=== PATIENT | male | born 1975 | race African-American/Black ===

== ENCOUNTER 2020-10-01 19:43 | Emergency (ER) | payer OTHER, SELFPAY ==
[2020-10-01 20:00] VITALS: BP 150/87; PULSE 72; RESP 19; TEMP 37.3; O2SAT 98; BMI 27.4
[2020-10-01 21:31] VITALS: BP 145/67; PULSE 78; RESP 18; TEMP 37.1; O2SAT 97; BMI 51.9
[2020-10-01] MEDS: 0.9 % Sodium Chloride 1,000 ML 999 ML IVCONT (22:28)
[2020-10-01 22:34] LABS: Basophils Percent Auto 0.5 % (0-2); Eosinophils Absolute Auto 0.3 X10*3/uL (0.0-0.4); Eosinophils Percent Auto 3.3 % (0-4); Hemoglobin 12.9 g/dl (14.0-18.0); Imm Gran Abs Auto 0.01 X10*3/uL (0.00-0.03); Imm Gran Pct Auto 0.1 % (0.0-0.4); Lymphocytes Absolute Auto 2.5 X10*3/uL (1.2-4.9); Lymphocytes Percent Auto 31.4 % (20-40); Mean Corpuscular HGB Conc 33.1 g/dl (31.0-36.0); Mean Corpuscular Hemoglobin 31.9 pg (27.0-33.0); Mean Corpuscular Volume 96.5 fL (80-98); Mean Platelet Volume 11.4 fL (9.4-12.4); Monocytes Absolute Auto 0.6 X10*3/uL (0.1-1.2); Monocytes Percent Auto 7.7 % (2-11); Neutrophils Absolute Auto 4.5 X10*3/uL (2.0-8.3); Platelet Count 192 X10*3/uL (160-400); Red Blood Count 4.04 X10*6/uL (4.60-5.80); Red Cell Distribution Width 13.4 % (11.0-16.0); WBC ABN SCTR 1
[2020-10-01 22:35] LABS: MANUAL DIFF FLAG NO
[2020-10-01 22:40] LABS: Prothrombin Time 12.1 SEC (10.8-13.0)
[2020-10-01 22:42] LABS: Partial Thromboplastin Time 35.3 SEC (24.1-38.0); WBC ABN SCTR FOR CBC 1
[2020-10-01 23:08] VITALS: BP 166/103; PULSE 61; RESP 16; TEMP 36.5; O2SAT 99
[2020-10-01 23:21] LABS: Glucose Urine UA NEG (NEG); Leukocyte Esterase Urine NEG (NEG); Nitrite Urine NEG (NEG); Urine Blood TRACE (NEG); Urine Ketones NEG (NEG); Urine Protein NEG (NEG-TRACE)
[2020-10-01 23:22] LABS: Appearance Urine CLEAR; Color Urine YELLOW
[2020-10-01 23:29] LABS: RBC Urine 0-2 /HPF (0); WBC Urine 0-2 /HPF (0-4)
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
[2020-10-01 23:43] LABS: Alanine Aminotransferase 12 U/L (0-40); Alkaline Phosphatase 65 U/L (39-117); Anion Gap 11 (12-20); Aspartate Amino Transferase 29 U/L (5-37); Bilirubin Total 0.4 mg/dL (0.0-1.0); Blood Urea Nitrogen 9 mg/dL (9-16); Calcium 8.6 mg/dL (8.4-10.2); Carbon Dioxide 26 mmol/L (22-29); Chloride 106 mmol/L (96-108); Creatinine Clr Calc Pharmacy 117.3; Estimated Glomerular Filt Rate > 60; Glucose Random 76 mg/dL (60-115); Potassium 3.8 mmol/l (3.3-5.1); Sodium 139 mmol/L (135-145)
[2020-10-02] VITALS: BP 143/99; PULSE 64; RESP 16; TEMP 36.6; O2SAT 100
--- NOTE | 2020-10-02 00:21 | CT_ITS ---
EXAMINATION: CT ABDOMEN AND PELVIS WITHOUT CONTRAST CLINICAL INFORMATION: Hematuria. COMPARISON: None. TECHNIQUE: Contiguous axial thin section helical images of the abdomen and pelvis were performed without oral or IV contrast. The data set was reformatted in the coronal and sagittal planes and reviewed on an independent workstation. DLP: 466 mGy-cm. FINDINGS: The visualized lung bases are clear. The visualized portions of the heart are unremarkable. The liver is of normal size and attenuation without focal lesions nor intrahepatic biliary ductal dilation. A normal gallbladder is identified. There is no wall thickening or discernible pericholecystic fluid. The spleen, pancreas, adrenal glands are unremarkable. Both kidneys are of normal size and attenuation without hydronephrosis or nephrolithiasis. There is no abdominal free fluid. There is neither mesenteric nor retroperitoneal lymphadenopathy. Normal unopacified loops of small and large bowel are identified. There is no pelvic free fluid. The urinary bladder is unremarkable. There is neither pelvic nor inguinal lymphadenopathy. Bone windows: Neither sclerotic nor lytic bone lesions are identified. CT/CT abdomen pelvis wo con IMPRESSION: No evidence for acute abdominal or pelvic inflammatory or infectious processes. Neither hydronephrosis nor nephrolithiasis. Please note that contrast was not administered for this exam. As such, evaluation for potential renal or bladder masses is extremely limited. Automated exposure control (Care Dose) Adjustment of the mA and/or kv according to patient size (this includes techniques or standardized protocols for targeted exams where dose is matched to indication / reason for exam; i.e. extremities or head).
== END 2020-10-02 01:59 | disposition home or self-care (01) ==
PROVIDERS: Physician Assistant; Emergency Provider Emergency Medicine
DX: R31.9 Hematuria, unspecified (principal); R10.9 Unspecified abdominal pain; Z79.899 Other long term (current) drug therapy
CPT/HCPCS: 36415; 74176; 80053; 81001; 85025; 85610; 85730; 96360; 99284

== ENCOUNTER 2023-07-17 21:08 | Emergency (ER) | payer OTHER, SELFPAY ==
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
[2023-07-17 21:19] VITALS: BP 202/119; PULSE 81; RESP 18; TEMP 36.9; O2SAT 96; BMI 25.0
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
--- OUTSIDE RECORDS SUMMARY | 2023-07-17 22:10 | XMS_ITS | Continuity of Care Document ---
Author Name Unknown Organization [facility] Address [address] [place] [address]- Care Team Providers Care Pharmacy Sales Assistant Name Role Phone Marvel Chavez DO Primary Care Physician [phone] Encounter [facility] Date(s): 05/15/22 - 06/14/22 [facility] [address] [place] [address]- Attending Physician: Blanca Ware Admitting Physician: AdmtrBlanca Referring Physician: Admtr, Ar8 Allergies, Adverse Reactions, Alerts No Known Allergies Immunizations Given and Recorded Vaccine Date Status Refusal Reason SARS-CoV-2 (COVID-19) mRNA BNT-162b2 vac 09/19/21 Given SARS-CoV-2 (COVID-19) mRNA BNT-162b2 vac 08/22/21 Given tetanus/diphtheria/pertussis, acel(Tdap) 08/22/21 Given pneumococcal 23-valent vaccine 08/24/15 Given influenza virus vaccine, inactivated 08/24/15 Give n Medications Ibuprofen Maintenance, 09/07/15 11:07:50 Start Date: 09/07/15 Status: Ordered lisinopril 10 mg oral tablet 10 mg, 1, tablet, By Mouth, Daily, # 30 tablet, Refills 5, Tot. Refills 5, Maintenance, 08/23/21 8:57:00 EDT, Route to Pharmacy Electronically, [facility] #[id number], Partial fill upon patient request if the prescription is for a schedule II opi... Start Date: 08/23/21 Status: Ordered NuLYTELY with Flavor Packs oral powder for reconstitution 240 mL, By Mouth, Every 10 minutes, May substitute any PEG 3350 solution available, # 1 each, 0 Refills, Maintenance, 12/18/22 17:00:00 EST, REC Powder, [facility] #[id number], test date 12/19/22, 240 mL By Mouth Every 10 minutes,Instr:March subst... Start Date: 12/18/22 Status: Ordered Social History Social History Type Response Smoking Status Never (less than 100 in lifetime) entered on: 08/22/21 Sex
--- OUTSIDE RECORDS SUMMARY | 2023-07-17 22:10 | XMS_ITS | Continuity of Care Document ---
Author Name Unknown Organization [facility] Address [address] [place] [address]- Care Team Providers Care Land Department Head Name Role Phone Not on Staff, PCP Primary Care Physician Unavail able Encounter [facility] Date(s): 04/11/20 - 06/22/20 [facility] [address] [place] [address]- [facility] Attending Physician: Anusha Saldana MD Allergies, Adverse Reactions, Alerts No Known Medication Allergies Substance Reaction Severity Status NKA Active Immunizations Given and Recorded Vaccine Date Status Refusal Reason pneumococcal 23-valent vaccine 08/24/15 Given influenza virus vaccine, inactivated 08/24/15 Give n Medications docusate sodium 100 mg oral tablet 1 tablet = 100 mg, By Mouth, 2 times a day, PRN for constipation, # 28 tablet, 0 Refills, Maintenance, 08/24/15 14:06:47, Tablet Start Date: 08/24/15 Status: Ordered Ibuprofen Maintenance, 09/07/15 11:07:50 Start Date: 09/07/15 Status: Ordered Naprosyn 500 mg oral tablet 1 tablet = 500 mg, By Mouth, 2 times a day, with food, # 30 tablet, 0 Refills, Maintenance, 06/20/15 21:29:22, Tablet Start Date: 06/20/15 Status: Ordered Social History Social History Type Response Smoking Status Never smoker entered on: 09/07/15 Sex
--- OUTSIDE RECORDS SUMMARY | 2023-07-17 22:10 | XMS_ITS | Continuity of Care Document ---
Author Name Unknown Organization [facility] Adult [facility] Address [address] [place] [address]- Care Team Providers Care Box Worker Name Role Phone Dasha Boateng MD Primary Care Physician [phone] Encounter [facility] [place] Date(s): 09/02/21 - 11/14/21 [facility] [address] [place] [address]- Attending Physician: Darvin Alexis MD Admitting Physician: Darvin Alexis MD Allergies, Adverse Reactions, Alerts No Known [...] 08/23/21 8:57:00 EDT, Route to Pharmacy Electronically, [facility] #[id number], Partial fill upon patient request if the prescription is for a schedule II opi... Start Date: 08/23/21 Status: Ordered Social History Social History Type Response Smoking Status Never (less than 100 in lifetime) entered on: 08/22/21 Sex
--- OUTSIDE RECORDS SUMMARY | 2023-07-17 22:10 | XMS_ITS | Continuity of Care Document ---
Author Name Unknown Organization [facility] Adult [facility] Address [address] [place] [address]- Care Team Providers Care Sample Maker Hand Name Role Phone Dasha Boateng MD Primary Care Physician [phone] Encounter [facility] [place] Date(s): 12/07/21 - 02/13/22 [facility] [address] [place] [address]- Attending Physician: Darvin Alexis MD Admitting Physician: Darvin Alexis MD Allergies, Adverse Reactions, Alerts No Known Allergies [...] 08/23/21 8:57:00 EDT, Route to Pharmacy Electronically, [facility] #[id number], Partial fill upon patient request if the prescription is for a schedule II opi... Start Date: 08/23/21 Status: Ordered Social History Social History Type Response Smoking Status Never (less than 100 in lifetime) entered on: 08/22/21 Sex
--- OUTSIDE RECORDS SUMMARY | 2023-07-17 22:10 | XMS_ITS | Continuity of Care Document ---
Author Name Unknown Organization [facility] Address [address] [place] [address]- Care Team Providers Care Bin Operator Name Role Phone Dasha Boateng MD Primary Care Physician Encounter [facility] [place] Date(s): 10/15/21 - 01/02/22 [facility] [address] [place] [address]- Attending Physician: Darvin Alexis MD Admitting Physician: [...] 08/23/21 8:57:00 EDT, Route to Pharmacy Electronically, [facility] #[id number], Partial fill upon patient request if the prescription is for a schedule II opi... Start Date: 08/23/21 Status: Ordered Social History Social History Type Response Smoking Status Never (less than 100 in lifetime) entered on: 08/22/21 Sex
--- OUTSIDE RECORDS SUMMARY | 2023-07-17 22:10 | XMS_ITS | Continuity of Care Document ---
Author Name Unknown Organization [facility] Adult [facility] Address [address] [place] [address]- Care Team Providers Care Special Agent Name Role Phone Marvel Chavez DO Primary Care Physician [phone] Encounter [facility] [place] ACCT R [id number] Date(s): 08/12/22 - 10/04/22 [facility] [address] [place] [address]- Attending Physician: Darvin Alexis MD Admitting Physician: Darvin Alexis MD Allergies, Adverse Reactions, Alerts No Known Allergies Immunizations Given and Recorded Vaccine Date Status Refusal Reason SARS-CoV-2 (COVID-19) mRNA BNT-162b2 vac 09/19/21 Given SARS-CoV-2 (COVID-19) mRNA BNT-162b2 vac 08/22/21 Given tetanus/diphtheria/pertussis, acel(Tdap) 08/22/21 Given pneumococcal 23-valent vaccine 08/24/15 Given influenza virus vaccine, inactivated 08/24/15 Give n Medications amLODIPine 5 mg oral tablet 5 mg, 1, tablet, By Mouth, Daily, # 30 tablet, Refills 1, Tot. Refills 1, Maintenance, 08/12/22 10:27:00 EDT, Route to Pharmacy Electronically, [facility] #[id number], Partial fill upon patient request if the prescription is for a schedule II opi... Start Date: 08/12/22 Status: Ordered Ibuprofen Maintenance, 09/07/15 11:07:50 Start Date: 09/07/15 Status: Ordered lisinopril 40 mg oral tablet 1 tablet = 40 mg, By Mouth, Daily, # 30 tablet, 2 Refills, Maintenance, 08/12/22 10:27:00 EDT, Tablet, [facility] #[id number], Partial fill upon patient request if the prescription is for a schedule II opioid drug., 168, cm, 08/12/22 10:20:00 EDT... Start Date: 08/12/22 Status: Ordered NuLYTELY with Flavor Packs oral powder for reconstitution 240 mL, By Mouth, Every 10 minutes, May substitute any PEG 3350 solution available, # 1 each, 0 Refills, Maintenance, 12/18/22 17:00:00 EST, REC Powder, [facility] #[id number], test date 12/19/22, 240 mL By Mouth Every 10 minutes,Instr:May subst... Start Date: 12/18/22 Status: Ordered Social History Social History Type Response Smoking Status Never (less than 100 in lifetime) entered on: 08/22/21 Sex Patient Care team information Care Team Personnel Name: Marvel Chavez DO Position: S Resident Member Role: PCP Address: Address: [address] [place] [address]- Care Team Related Persons Name: BRISEIDA SALINAS Address: home [address] [place] [address] Name: JANES DICKERSON Address: home [address] [place] [address]
--- OUTSIDE RECORDS SUMMARY | 2023-07-17 22:10 | XMS_ITS | Continuity of Care Document ---
Author Name Unknown Organization [facility] Adult [facility] Address [address] [place] [address]- Care Team Providers Care Sweater Designer Name Role Phone Kilo FLORES, Dasha Primary Care Physician Encounter [facility] [place] Date(s): 04/11/22 - 05/11/22 [facility] [address] [place] [address]- Allergies, Adverse Reactions, Alerts No Known Allergies [...] 08/23/21 8:57:00 EDT, Route to Pharmacy Electronically, [email or web address] #[id number], Partial fill upon patient request if the prescription is for a schedule II opi... Start Date: 08/23/21 Status: Ordered Social History Social History Type Response Smoking Status Never (less than 100 in lifetime) entered on: 08/22/21 Sex
--- OUTSIDE RECORDS SUMMARY | 2023-07-17 22:10 | XMS_ITS | Continuity of Care Document ---
Author Name Unknown Organization [facility] Adult [facility] Address [address] [place] [address]- Care Team Providers Care Stock Parts Fabricator Name Role Phone Marvel Chavez DO Primary Care Physician [phone] [place] [facility] [place] 10/22/22 - 11/21/22 [facility] [address] [place] [address] Allergies, Adverse Reactions, Alerts No Known Allergies Immunizations Given and Recorded Vaccine Date Status Refusal Reason SARS-CoV-2 (COVID-19) mRNA BNT-162b2 vac 09/19/21 Given SARS-CoV-2 (COVID-19) mRNA BNT-162b2 vac 08/22/21 Given tetanus/diphtheria/pertussis, acel(Tdap) 08/22/21 Given pneumococcal 23-valent vaccine 08/24/15 Given influenza virus vaccine, inactivated 08/24/15 Give n Medications amLODIPine 5 mg oral tablet 1 tablet = 5 mg, By Mouth, Daily, # 90 tablet, 0 Refills, Maintenance, 10/22/22 18:12:00 EST, [facility] #[id number], Partial fill upon patient request if the prescription is for a schedule II opioid drug., 168, cm, 08/12/22 10:20:00 EDT,... Start Date: 10/22/22 Status: Ordered Ibuprofen Maintenance, 09/07/15 11:07:50 Start Date: 09/07/15 Status: Ordered lisinopril 40 mg oral tablet 1 tablet = 40 mg, By Mouth, Daily, # 30 tablet, 2 Refills, Maintenance, 11/04/22 18:51:00 EST, Tablet, [facility] #[id number], Partial fill upon patient request if the prescription is for a schedule II opioid drug., 168, cm, 11/04/22 18:50:00 EST... Start Date: 11/04/22 Status: Ordered NuLYTELY with Flavor Packs oral powder for reconstitution 240 mL, By Mouth, Every 10 minutes, May substitute any PEG 3350 solution available, # 1 each, 0 Refills, Maintenance, 12/18/22 17:00:00 EST, REC Powder, [facility] #[id number], test date 12/19/22, 240 mL By Mouth Every 10 minutes,Instr:May subst... Start Date: 12/18/22 Status: Ordered Problem List Condition Confirmation Course Effective Dates Status Health [facility] Informant Hypertension Confirmed Active Social History Social History Type Response Smoking Status Never (less than 100 in lifetime) entered on: 08/22/21 Sex Patient Care team information Care Team Personnel Name: Marvel Chavez DO Position: [facility] Resident Member Role: PCP Address: Address: [address] [place] [address]- Care Team Related Persons Name: BRISEIDA SALINAS Address: home [address] [place] [address] Name: JANES DICKERSON Address: home [address] [place] [address]
--- OUTSIDE RECORDS SUMMARY | 2023-07-17 22:10 | XMS_ITS | Continuity of Care Document ---
Author Name Unknown Organization [facility] Adult [facility] Address [address] [place] [address]- Care Team Providers Care Soldering Technician Name Role Phone Not on Staff, PCP Primary Care Physician Unavail able Encounter [facility] Date(s): 07/17/20 - 08/16/20 [facility] [address] [place] [address]- [facility] Allergies, Adverse Reactions, Alerts No Known Medication [...]
--- OUTSIDE RECORDS SUMMARY | 2023-07-17 22:10 | XMS_ITS | Continuity of Care Document ---
Author Name Unknown Organization [facility] Address [address] [place] [address]- Care Team Providers Care Square Dance Caller Name Role Phone Not on Staff, PCP Primary Care Physician Unavail able Encounter [facility] [place] Date(s): 05/22/20 - 06/22/20 [facility] [address] [place] [address]- [facility] Attending Physician: Anusha Saldana MD Allergies, Adverse [...]
--- OUTSIDE RECORDS SUMMARY | 2023-07-17 22:10 | XMS_ITS | Continuity of Care Document ---
Author Name Unknown Organization [facility] Address [address] [place] [address]- Care Team Providers Care Tire Curer Name Role Phone Kathy Marvel Primary Care Physician Encounter [facility] [place] Date(s): 06/06/22 - 07/06/22 [facility] [address] [place] [address] [place] Allergies, Adverse Reactions, Alerts No Known Allergies [...] 08/23/21 8:57:00 EDT, Route to Pharmacy Electronically, [facility] #[id number], Partial fill upon patient request if the prescription is for a schedule II opi... Start Date: 08/23/21 Status: Ordered NuLYTELY with Flavor Packs oral powder for reconstitution 240 mL, By Mouth, Every 10 minutes, May substitute any PEG 3350 solution available, # 1 each, 0 Refills, Maintenance, 12/18/22 17:00:00 EST, REC Powder, [facility] #[id number], test date 12/19/22, 240 mL By Mouth Every 10 minutes,Instr:May subst... Start Date: 12/18/22 Status: Ordered Social History Social History Type Response Smoking Status Never (less than 100 in lifetime) entered on: 08/22/21 Sex
--- OUTSIDE RECORDS SUMMARY | 2023-07-17 22:10 | XMS_ITS | Continuity of Care Document ---
Author Name Unknown Organization [facility] Adult Medicine Address [address] [place] [address]- Care Team Providers Care Speech Language Pathologist Travel Name Role Phone Kilo FLORES, Dasha Primary Care Physician [phone] Encounter [facility] Date(s): 11/10/20 - 12/10/20 [facility] [address] [place] [address]- Attending Physician: Blanca Ware Admitting Physician: Blanca Ware Referring Physician: AdmBlanca padron Allergies, Adverse Reactions, Alerts No Known Medication Allergies Substance Reaction Severity Status NKA Active Immunizations Given and Recorded Vaccine Date Status Refusal Reason pneumococcal 23-valent vaccine 08/24/15 Given influenza virus vaccine, inactivated 08/24/15 Give n Medications Ibuprofen Maintenance, 09/07/15 11:07:50 Start Date: 09/07/15 Status: Ordered Social History Social History Type Response Tobacco Other: Denies tobacc o, alcohol, but does smoke recreational marijuana. Sex
--- OUTSIDE RECORDS SUMMARY | 2023-07-17 22:10 | XMS_ITS | Continuity of Care Document ---
Author Name Unknown Organization [facility] Adult [facility] Address [address] [place] [address]- Care Team Providers Care Drafter Refrigeration Name Role Phone Dasha Boateng MD Primary Care Physician [phone] Encounter [facility] [place] Date(s): 07/27/21 - 09/13/21 [facility] [address] [place], [place] [address] Attending Physician: Not on Staff, Attending MD Allergies, Adverse Reactions, Alerts No Known Medication Allergies Substance Reaction Severity Status NKA Active Immunizations Given and Recorded Vaccine Date Status Refusal Reason tetanus/diphtheria/pertussis, acel(Tdap) 08/22/21 Given SARS-CoV-2 (COVID-19) mRNA BNT-162b2 vac 08/22/21 Given pneumococcal 23-valent vaccine 08/24/15 Given influenza virus vaccine, inactivated 08/24/15 Give n Medications Ibuprofen Maintenance, 09/07/15 11:07:50 Start Date: 09/07/15 Status: Ordered lisinopril 10 mg oral tablet 10 mg, 1, tablet, By Mouth, Daily, # 30 tablet, Refills 5, Tot. Refills 5, Maintenance, 08/23/21 8:57:00 EDT, Route to Pharmacy Electronically, [facility] #[id number], Partial fill upon patient request if the prescription is for a schedule II opi... Start Date: 08/23/21 Status: Ordered Social History Social History Type Response Smoking Status Never (less than 100 in lifetime) entered on: 08/22/21 Sex
--- OUTSIDE RECORDS SUMMARY | 2023-07-17 22:11 | XMS_ITS | Continuity of Care Document ---
Author Name Unknown Organization [facility] Adult [facility] Address [address] [place] [address]- Care Team Providers Care Wood Last Maker Name Role Phone Dasha Boateng MD Primary Care Physician [place] [facility] [place] 01/14/22 - 02/13/22 [facility] [address] [place] [address]- Attending Physician: Admtr, Rui8 Admitting Physician: Admtr, ArMeghann Referring Physician: Admtr, Ar8 Allergies, Adverse Reactions, [...] 08/23/21 8:57:00 EDT, Route to Pharmacy Electronically, [facility] #[id number], Partial fill upon patient request if the prescription is for a schedule II opi... Start Date: 08/23/21 Status: Ordered Social History Social History Type Response Smoking Status Never (less than 100 in lifetime) entered on: 08/22/21 Sex
--- OUTSIDE RECORDS SUMMARY | 2023-07-17 22:11 | XMS_ITS | Continuity of Care Document ---
Author Name Unknown Organization [facility] ter Address [address] [place] [address]- Care Team Providers Care Pacu Rn Name Role Phone Not on Staff, PCP Primary Care Physician Unavail able Encounter [facility] Date(s): 12/06/19 - 12/07/[address] [address]- [facility] Discharge Disposition: A-D/C Walkout Attending Physician: Not on Staff, Attending MD Admitting Physician: Not on Staff, Admitting MD Referring Physician: Not on Staff, Referring MD Allergies, Adverse Reactions, Alerts No Known [...] 21:29:22, Tablet Start Date: 06/20/15 Status: Ordered Vital Signs Most recent to oldest [Reference Range]: 1 Weight 85.9 kg (12/06/19 9:25 PM) Oxygen Saturation [94-100 %] 96 % (12/06/19 9:25 PM) Pulse Rate [55-90 bpm] 74 bpm (12/06/19 9:25 PM) Blood Pressure [90-138/55-84 mm Hg] 171/ 97mm Hg *H* (1/13/20 9:25 PM) Respiratory Rate [16-30 br/min] 16 br/mi n (12/06/19 9:25 PM) Temperature [96.8-100.4 DegF] 98.2 DegF (12/06/19 9:25 PM) Mode of Delivery (Oxygen) Room air (12/06/19 9:25 PM) Blood pressure sites Arm, right (12/06/19 9:25 PM) Temperature Route Oral (12/06/19 9:25 PM) Dry Weight 85.9 kg (12/06/19 9:25 PM) Social History Social History Type Response Smoking Status Never smoker entered on: 09/07/15 Sex
--- OUTSIDE RECORDS SUMMARY | 2023-07-17 22:11 | XMS_ITS | Continuity of Care Document ---
Author Name Unknown Organization [facility] Address [address] [place] [address]- Care Team Providers Care Pool Coordinator Name Role Phone Dasha Boateng MD Primary Care Physician [phone] [place] [facility] [place] 09[place]14[place]21 - 10/14/21 [facility] [address] [place] [address]- Allergies, Adverse Reactions, Alerts No Known Medication [...] 08/23/21 8:57:00 EDT, Route to Pharmacy Electronically, [facility] #[id number], Partial fill upon patient request if the prescription is for a schedule II opi... Start Date: 08/23/21 Status: Ordered Social History Social History Type Response Smoking Status Never (less than 100 in lifetime) entered on: 08/22/21 Sex
--- OUTSIDE RECORDS SUMMARY | 2023-07-17 22:11 | XMS_ITS | Continuity of Care Document ---
Author Name Unknown Organization [facility] ter Address [address] [place] [address]- Care Team Providers Care Wet Room Worker Name Role Phone Not on Staff, PCP Primary Care Physician Unavail able Encounter [facility] Date(s): 03/20/20 - 03/20/[address] [address]- [facility] Discharge Disposition: A-D/C Home Attending Physician: Elliott Obrien MD Admitting Physician: Elliott Obrien MD Referring Physician: Not on Staff, Referring [...] Most recent to oldest [Reference Range]: 1 2 Oxygen Saturation [94-100 %] 100 % (03/20/20 12:35 PM) 100 % (03/20/20 12:32 PM) Pulse Rate [55-90 bpm] 70 bpm (03/20/20 12:35 PM) 86 bpm (03/20/20 12:32 PM) Blood Pressure [90-138/55-84 mm Hg] 143/ 91mm Hg *H* (03/20/20 12:35 PM) Respiratory Rate [16-30 br/min] 20 br/mi n (03/20/20 12:35 PM) 18 br/min (03/20/20 12:32 PM) Temperature [96.8-100.4 DegF] 97.7 DegF (03/20/20 12:35 PM) Mode of Delivery (Oxygen) Room air (03/20/20 12:35 PM) Room air (03/20/20 12:32 PM) Temperature Route Oral (03/20/20 12:35 PM) Social History Social History Type Response Smoking Status Never smoker entered on: 09/07/15 Sex
--- OUTSIDE RECORDS SUMMARY | 2023-07-17 22:11 | XMS_ITS | Continuity of Care Document ---
Author Name Unknown Organization [facility] Adult [facility] Address [address] [place] [address]- Care Team Providers Care Vegetable Farmworker Name Role Phone Dasha Boateng MD Primary Care Physician [place] [facility] [place]14[place] - 10/14/21 [facility] [address] [place] [address]- Allergies, Adverse Reactions, Alerts No Known Medication [...] 08/23/21 8:57:00 EDT, Route to Pharmacy Electronically, [facility] #[id number], Partial fill upon patient request if the prescription is for a schedule II opi... Start Date: 08/23/21 Status: Ordered Social History Social History Type Response Smoking Status Never (less than 100 in lifetime) entered on: 08/22/21 Sex
--- OUTSIDE RECORDS SUMMARY | 2023-07-17 22:11 | XMS_ITS | Continuity of Care Document ---
Author Name Unknown Organization [facility] Adult [facility] Address [address] [place] [address]- Care Team Providers Care Boxer Operator Name Role Phone Marvel Chavez DO Primary Care Physician Encounter [facility] ACCT R [id number] Date(s): 09/05/22 - 11/01/22 [facility] [address] [place] [address]- Attending Physician: Darvin Alexis MD Admitting Physician: [...] tablet, 0 Refills, Maintenance, 10/22/22 18:12:00 EST, Tablet, [facility] #[id number], Partial fill upon patient request if the prescription is for a schedule II opioid drug., 168, cm, 08/12/22 10:20:00 EDT,... Start Date: 10/22/22 Status: Ordered amLODIPine 5 mg oral tablet 5 mg, 1, tablet, By Mouth, Daily, # 30 tablet, Refills 1, Tot. Refills 1, Maintenance, 08/12/22 10:27:00 EDT, Route to Pharmacy Electronically, [facility] #[id number], Partial fill upon patient request if the prescription is for a schedule II opi... Start Date: 08/12/22 Status: Ordered Ibuprofen Maintenance, 09/07/15 11:07:50 Start Date: 09/07/15 Status: Ordered lisinopril 40 mg oral tablet 1 tablet = 40 mg, By Mouth, Daily, # 30 tablet, 2 Refills, Maintenance, 08/12/22 10:27:00 EDT, Tablet, [email or web address] #[id number], Partial fill upon patient request if the prescription is for a schedule II opioid drug., 168, cm, 08/12/22 10:20:00 EDT... Start Date: 08/12/22 Status: Ordered NuLYTELY with Flavor Packs oral powder for reconstitution 240 mL, By Mouth, Every 10 minutes, May substitute any PEG 3350 solution available, # 1 each, 0 Refills, Maintenance, 12/18/22 17:00:00 EST, REC Powder, [email or web address] #[id number], test date 12/19/22, 240 mL By Mouth Every 10 minutes,Instr:May subst... Start Date: 12/18/22 Status: Ordered Social History Social History Type Response Smoking Status Never (less than 100 in lifetime) entered on: 08/22/21 Sex Patient Care team information Care Team Personnel Name: Marvel Chavez DO Position: S Resident Member Role: PCP Address: Address: [address] [place] [address]- Care Team Related Persons Name: BRISEIDA SALINAS Address: [address] [place] [address] Name: JANES DICKERSON Address: home [address] [place] [address]
--- OUTSIDE RECORDS SUMMARY | 2023-07-17 22:11 | XMS_ITS | Continuity of Care Document ---
Author Name Unknown Organization [facility] Adult [facility] Address [address] [place] [address]- Care Team Providers Care Dietetic Technician Name Role Phone Kilo FLORES, Dasha Primary Care Physician Encounter [facility] [place] Date(s): 04/11/22 - 05/11/22 [facility] [address] [place] [address]- Allergies, Adverse Reactions, Alerts No Known Allergies [...] 08/23/21 8:57:00 EDT, Route to Pharmacy Electronically, [facility] #[id number], Partial fill upon patient request if the prescription is for a schedule II opi... Start Date: 08/23/21 Status: Ordered Social History Social History Type Response Smoking Status Never (less than 100 in lifetime) entered on: 08/22/21 Sex
--- OUTSIDE RECORDS SUMMARY | 2023-07-17 22:11 | XMS_ITS | Continuity of Care Document ---
Author Name Unknown Organization [facility] Address [address] [place] [address]- Care Team Providers Care Data Software Engineer Name Role Phone Kilo FLORES, Dasha Primary Care Physician [phone] [place] [facility] [place] - 05/12/22 [facility] [address] [place] [address]- [place] Allergies, Adverse Reactions, Alerts No Known [...] 08/23/21 8:57:00 EDT, Route to Pharmacy Electronically, [facility] #[id number], Partial fill upon patient request if the prescription is for a schedule II opi... Start Date: 08/23/21 Status: Ordered Social History Social History Type Response Smoking Status Never (less than 100 in lifetime) entered on: 08/22/21 Sex
--- OUTSIDE RECORDS SUMMARY | 2023-07-17 22:11 | XMS_ITS | Continuity of Care Document ---
Author Name Unknown Organization [facility] Address [address] [place] [address]- Care Team Providers Care Cat Swamper Name Role Phone Dasha Boateng MD Primary Care Physician Encounter [facility] [place] Date(s): 10/15/21 - 11/14/21 [facility] [address] [place] [address]- Attending Physician: Admtr, Ar8 Admitting Physician: Admtr, Ar8 Referring Physician: Admtr, Ar8 Allergies, Adverse Reactions, Alerts No Known Medication [...] 08/23/21 8:57:00 EDT, Route to Pharmacy Electronically, [facility] #[id number], Partial fill upon patient request if the prescription is for a schedule II opi... Start Date: 08/23/21 Status: Ordered Social History Social History Type Response Smoking Status Never (less than 100 in lifetime) entered on: 08/22/21 Sex
--- OUTSIDE RECORDS SUMMARY | 2023-07-17 22:11 | XMS_ITS | Continuity of Care Document ---
Author Name Unknown Organization [facility] Address [address] [place] [address]- Care Team Providers Care Loader Operator/Ground Leader Name Role Phone Kilo FLORES, Dasha Primary Care Physician [phone] Encounter [facility] Date(s): 10/05/20 - 11/08/20 [facility] [address] [place] [address]- Attending Physician: Darvin Alexis MD Admitting Physician: [...]
--- OUTSIDE RECORDS SUMMARY | 2023-07-17 22:11 | XMS_ITS | Continuity of Care Document ---
Author Name Unknown Organization [facility] Address [address] [place] [address]- Care Team Providers Care Laborer/Key Man Name Role Phone Marvel Chavez DO Primary Care Physician [place] [facility] [place](s): 11/08/22 - 01/15/23 [facility] [address] [place] [id number] Attending Physician: Not on Staff, Attending MD [...] 0 Refills, Maintenance, 10/22/22 18:12:00 EST, Tablet, [facility] #[id number], Partial fill upon patient request if the prescription is for a schedule II opioid drug., 168, cm, 08/12/22 10:20:00 EDT,... Start Date: 10/22/22 Status: Ordered Ibuprofen Maintenance, 09/07/15 11:07:50 Start Date: 09/07/15 Status: Ordered lisinopril 40 mg oral tablet 1 tablet = 40 mg, By Mouth, Daily, # 30 tablet, 2 Refills, Maintenance, 11/04/22 18:51:00 EST, Tablet, [facility] #[id number], Partial fill upon patient request if the prescription is for a schedule II opioid drug., 168, cm, 11/04/22 18:50:00 EST... Start Date: 11/04/22 Status: Ordered NuLYTELY with Flavor Packs oral powder for reconstitution 240 mL, By Mouth, Every 10 minutes, May substitute any PEG 3350 solution available, # 1 each, 0 Refills, Maintenance, 12/18/22 17:00:00 EST, REC Powder, [facility] #[id number], test date 12/19/22, 240 mL By Mouth Every 10 minutes,Instr:May subst... Start Date: 12/18/22 Status: Ordered Problem List Condition Confirmation Course Effective Dates Status Health St [facility] Informant Hypertension Confirmed Active Social History Social History Type Response Smoking Status Never (less than 100 in lifetime) entered on: 08/22/21 Sex Patient Care team information Care Team Personnel Name: Marvel Chavez DO Position: [facility] Resident Member Role: PCP Address: Address: [address] [place] [address]- Care Team Related Persons Name: BRISEIDA SALINAS Address: home [address] [place] [address] Name: JANES DICKERSON Address: home [address] [place] [address]
--- OUTSIDE RECORDS SUMMARY | 2023-07-17 22:11 | XMS_ITS | Continuity of Care Document ---
Author Name Unknown Organization [facility] Address [address] [place] [address]- Care Team Providers Care Dry Wall Plasterer Name Role Phone Marvel Chavez DO Primary Care Physician [place] [facility] [place]23 [facility] [address] [place] [id number] Attending Physician: Blanca Ware Admitting Physician: Blanca Ware Referring Physician: AdmtrBlanca Allergies, Adverse Reactions, Alerts No Known Allergies [...] 0 Refills, Maintenance, 10/22/22 18:12:00 EST, Tablet, [facility] #[id number], Partial fill upon patient request if the prescription is for a schedule II opioid drug., 168, cm, 08/12/22 10:20:00 EDT,... Start Date: 10/22/22 Status: Ordered Ibuprofen Maintenance, 09/07/15 11:07:50 Start Date: 09/07/15 Status: Ordered lisinopril 40 mg oral tablet 1 tablet = 40 mg, By Mouth, Daily, # 30 tablet, 2 Refills, Maintenance, 11/04/22 18:51:00 EST, Tablet, [facility] #[id number], Partial fill upon patient request if the prescription is for a schedule II opioid drug., 168, cm, 11/04/22 18:50:00 EST... Start Date: 11/04/22 Status: Ordered NuLYTELY with Flavor Packs oral powder for reconstitution 240 mL, By Mouth, Every 10 minutes, May substitute any PEG 3350 solution available, # 1 each, 0 Refills, Maintenance, 12/18/22 17:00:00 EST, REC Powder, [facility] #[id number], test date 12/19/22, 240 mL By Mouth Every 10 minutes,Instr:May subst... Start Date: 12/18/22 Status: Ordered Problem List Condition Confirmation Course Effective Dates Status Health St [facility] Informant Hypertension Confirmed Active Social History Social History Type Response Smoking Status Never (less than 100 in lifetime) entered on: 08/22/21 Sex Patient Care team information Care Team Personnel Name: Marvel Chavez DO Position: [facility] Resident Member Role: PCP Address: Address: [address] [place] [address]- Care Team Related Persons Name: BRISEIDA SALINAS Address: [address] [place] [address] Name: JANES DICKERSON Address: [address] [place] [address]
--- OUTSIDE RECORDS SUMMARY | 2023-07-17 22:11 | XMS_ITS | Continuity of Care Document ---
Author Name Unknown Organization [facility] Address [address] [place] [address]- Care Team Providers Care Aviation Medicine Specialist Name Role Phone Kilo FLORES, Dasha Primary Care Physician Encounter [facility] Date(s): 10/04/20 - 11/03/20 [facility] [address] [place], [place] [address] Allergies, Adverse Reactions, Alerts No Known Medication [...]
--- OUTSIDE RECORDS SUMMARY | 2023-07-17 22:11 | XMS_ITS | Continuity of Care Document ---
Author Name Unknown Organization [facility] Address [address] [place] [id number]- Care Team Providers Care Repair Armature Winder Name Role Phone Marvel Chavez DO Primary Care Physician [phone] [place] [facility] [place]/06/[place] - 01/18/[address] [address]- Attending Physician: Lamberto Solomon MD Admitting Physician: Lamberto Solomon MD Allergies, Adverse Reactions, Alerts No Known [...] 0 Refills, Maintenance, 10/22/22 18:12:00 EST, Tablet, [facility] #[id number], Partial fill upon patient request if the prescription is for a schedule II opioid drug., 168, cm, 08/12/22 10:20:00 EDT,... Start Date: 10/22/22 Status: Ordered Ibuprofen Maintenance, 09/07/15 11:07:50 Start Date: 09/07/15 Status: Ordered lisinopril 40 mg oral tablet 1 tablet = 40 mg, By Mouth, Daily, # 30 tablet, 2 Refills, Maintenance, 11/04/22 18:51:00 EST, Tablet, [facility] #[id number], Partial fill upon patient request if the prescription is for a schedule II opioid drug., 168, cm, 11/04/22 18:50:00 EST... Start Date: 11/04/22 Status: Ordered NuLYTELY with Flavor Packs oral powder for reconstitution 240 mL, By Mouth, Every 10 minutes, May substitute any PEG 3350 solution available, # 1 each, 0 Refills, Maintenance, 12/18/22 17:00:00 EST, REC Powder, [facility] #[id number], test date 12/19/22, 240 mL By Mouth Every 10 minutes,Instr:May subst... Start Date: 12/18/22 Status: Ordered Problem List Condition Confirmation Course Effective Dates Status Health St [facility] Informant Hypertension Confirmed Active Social History Social History Type Response Smoking Status Never (less than 100 in lifetime) entered on: 08/22/21 Sex Patient Care team information Care Team Personnel Name: Marvel Chavez DO Position: [facility] Resident Member Role: PCP Address: Address: [address] [place] [address]- Care Team Related Persons Name: BRISEIDA SALINAS Address: [address] [place] [address] Name: JANES DICKERSON Address: [address] [place] [address]
--- OUTSIDE RECORDS SUMMARY | 2023-07-17 22:11 | XMS_ITS | Continuity of Care Document ---
Author Name Unknown Organization [facility] Address [address] [place] [address]- Care Team Providers Care Inspector Golf Ball Name Role Phone Dasha Boateng MD Primary Care Physician [phone] Encounter [facility] [place] Date(s): 07/25/21 - 08/24/21 [facility] [address] [place] [address]- Allergies, Adverse Reactions, Alerts No Known Medication Allergies Substance Reaction Severity Status NKA Active Immunizations Given and Recorded Vaccine Date Status Refusal Reason tetanus/diphtheria/pertussis, acel(Tdap) 08/22/21 Given SARS-CoV-2 (COVID-19) mRNA BNT-162b2 vac 08/22/21 Given pneumococcal 23-valent vaccine 08/24/15 Given influenza virus vaccine, inactivated 08/24/15 Give n Medications Debrox 6.5% solution 5 drops, Ears, Both, 2 times a day, for 4 days, # 15 mL, 0 Refills, Acute 08/26/21 14:24:00 EDT, 08/22/21 14:24:00 EDT, Solution, [facility] #[id number], Partial fill upon patient request if theprescription is for a schedule II opioid drug., 5 d... Start Date: 08/22/21 Stop Date: 08/26/21 Status: Ordered Ibuprofen Maintenance, 09/07/15 11:07:50 Start Date: 09/07/15 Status: Ordered lisinopril 10 mg oral tablet 10 mg, 1, tablet, By Mouth, Daily, # 30 tablet, Refills 5, Tot. Refills 5, Maintenance, 08/23/21 8:57:00 EDT, Route to Pharmacy Electronically, [facility] #[id number], Partial fill upon patient request if the prescription is for a schedule II opi... Start Date: 08/23/21 Status: Ordered Social History Social History Type Response Smoking Status Never (less than 100 in lifetime) entered on: 08/22/21 Sex
--- OUTSIDE RECORDS SUMMARY | 2023-07-17 22:11 | XMS_ITS | Continuity of Care Document ---
Author Name Unknown Organization [facility] Address [address] [place] [address]- Care Team Providers Care Hobbing Machine Operator Name Role Phone Marvel Chavez DO Primary Care Physician Encounter [facility] [place] Date(s): 01/14/23 - 02/13/23 [facility] [address] [place] [id number] Allergies, Adverse Reactions, Alerts No Known [...] 0 Refills, Maintenance, 10/22/22 18:12:00 EST, Tablet, [facility] #[id number], Partial fill upon patient request if the prescription is for a schedule II opioid drug., 168, cm, 08/12/22 10:20:00 EDT,... Start Date: 10/22/22 Status: Ordered Ibuprofen Maintenance, 09/07/15 11:07:50 Start Date: 09/07/15 Status: Ordered lisinopril 40 mg oral tablet 1 tablet = 40 mg, By Mouth, Daily, # 30 tablet, 2 Refills, Maintenance, 11/04/22 18:51:00 EST, Tablet, [facility] #[id number], Partial fill upon patient request if the prescription is for a schedule II opioid drug., 168, cm, 11/04/22 18:50:00 EST... Start Date: 11/04/22 Status: Ordered NuLYTELY with Flavor Packs oral powder for reconstitution 240 mL, By Mouth, Every 10 minutes, May substitute any PEG 3350 solution available, # 1 each, 0 Refills, Maintenance, 12/18/22 17:00:00 EST, REC Powder, [facility] #[id number], test date 12/19/22, 240 mL By Mouth Every 10 minutes,Instr:May subst... Start Date: 12/18/22 Status: Ordered Problem List Condition Confirmation Course Effective Dates Status Health St [facility] Informant Hypertension Confirmed Active Social History Social History Type Response Smoking Status Never (less than 100 in lifetime) entered on: 08/22/21 Sex Patient Care team information Care Team Personnel Name: Marvel Chavez DO Position: [facility] Resident Member Role: PCP Address: Address: [address] [place] [address]- Care Team Related Persons Name: BRISEIDA SALINAS Address: home [address] [place] [address] Name: JANES DICKERSON Address: [address] [place] [address]
--- OUTSIDE RECORDS SUMMARY | 2023-07-17 22:11 | XMS_ITS | Continuity of Care Document ---
Author Name Unknown Organization [facility] Address [address] [place] [address]- Care Team Providers Care Fortune Teller Name Role Phone Marvel Chavez DO Primary Care Physician [place] [facility] [place] Date(s): 10/04/22 - 11/15/22 [facility] [address] [place] [id number] Attending Physician: Darvin Alexis MD Admitting Physician: [...] 0 Refills, Maintenance, 10/22/22 18:12:00 EST, Tablet, [facility] #[id number], Partial fill upon patient request if the prescription is for a schedule II opioid drug., 168, cm, 08/12/22 10:20:00 EDT,... Start Date: 10/22/22 Status: Ordered Ibuprofen Maintenance, 09/07/15 11:07:50 Start Date: 09/07/15 Status: Ordered lisinopril 40 mg oral tablet 1 tablet = 40 mg, By Mouth, Daily, # 30 tablet, 2 Refills, Maintenance, 11/04/22 18:51:00 EST, Tablet, [facility] #[id number], Partial fill upon patient request if the prescription is for a schedule II opioid drug., 168, cm, 11/04/22 18:50:00 EST... Start Date: 11/04/22 Status: Ordered NuLYTELY with Flavor Packs oral powder for reconstitution 240 mL, By Mouth, Every 10 minutes, May substitute any PEG 3350 solution available, # 1 each, 0 Refills, Maintenance, 12/18/22 17:00:00 EST, REC Powder, [facility] #[id number], test date 12/19/22, 240 mL By Mouth Every 10 minutes,Instr:May subst... Start Date: 12/18/22 Status: Ordered Problem List Condition Confirmation Course Effective Dates Status Health St [facility] Informant Hypertension Confirmed Active Social History Social History Type Response Smoking Status Never (less than 100 in lifetime) entered on: 08/22/21 Sex Patient Care team information Care Team Personnel Name: Marvel Chavez DO Position: [facility] Resident Member Role: PCP Address: Address: [address] [place] [id number]- Care Team Related Persons Name: BRISEIDA SALINAS Address: home [address] [place] [address] Name: JANES DICKERSON Address: [address] [place] [address]
[2023-07-17 22:23] LABS: MANUAL DIFF FLAG NO
[2023-07-17] MEDS: NaPROXEN 500 MG TABLET PO (22:31)
[2023-07-17 22:32] LABS: Basophils Percent Auto 0.3 % (0-2); Eosinophils Absolute Auto 0.1 X10*3/uL (0.0-0.4); Eosinophils Percent Auto 0.8 % (0-4); Hematocrit 37.7 % (42.0-52.0); Hemoglobin 12.7 g/dl (14.0-18.0); Imm Gran Abs Auto 0.07 X10*3/uL (0.00-0.03); Imm Gran Pct Auto 0.6 % (0.0-0.4); Lymphocytes Absolute Auto 1.7 X10*3/uL (1.2-4.9); Lymphocytes Percent Auto 14.1 % (20-40); Mean Corpuscular HGB Conc 33.7 g/dl (31.0-36.0); Mean Corpuscular Hemoglobin 31.7 pg (27.0-33.0); Monocytes Absolute Auto 1.1 X10*3/uL (0.1-1.2); Monocytes Percent Auto 9.5 % (2-11); Neutrophils Absolute Auto 8.8 x10*3/uL (2.0-8.3); Neutrophils Percent Auto 74.7 % (45-73); Platelet Count 213 X10*3/uL (160-400); Red Blood Count 4.01 X10*6/uL (4.60-5.80); Red Cell Distribution Width 14.5 % (11.0-16.0); White Blood Count 11.8 X10*3/uL (4.8-10.8)
[2023-07-17] MEDS: amLODIPine Besylate 5 MG TABLET PO (22:32)
[2023-07-17] MEDS: lisinopriL 10 MG TABLET PO (22:32)
[2023-07-17 22:33] VITALS: BP 184/116; PULSE 84; RESP 14; TEMP 36.8; O2SAT 98
[2023-07-17 22:35] LABS: Anion Gap 13 (12-20); Blood Urea Nitrogen 8 mg/dL (9-16); C Reactive Protein 0.71 mg/dL (< or = 0.50); Calcium 9.5 mg/dL (8.4-10.2); Carbon Dioxide 26 mmol/L (22-29); Chloride 106 mmol/L (96-108); Creatinine Clr Calc Pharmacy 82.4; Estimated Glomerular Filt Rate > 60; Glucose Random 90 mg/dL (60-115); Potassium 3.7 mmol/L (3.3-5.1); Sodium 141 mmol/L (135-145)
[2023-07-17 23:19] LABS: Erythrocyte Sedimentation Rate 18 MM/HR (0-15)
[2023-07-17 23:50] VITALS: BP 179/119; PULSE 85; RESP 14; O2SAT 98
--- NOTE | 2023-07-17 23:56 | PC.NURSE ---
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 Provider aware.
--- NOTE | 2023-07-18 00:45 | PC.NURSE ---
This Rn reviewed the AMA/discharge instructions with pt. Pt verbalized understanding risk of leaving AMA.
== END 2023-07-18 00:41 | disposition left against medical advice (07) ==
PROVIDERS: Nurse Practitioner Family; Emergency Provider Student in an Organized Health Care Education/Training Program
DX: M25.461 Effusion, right knee (principal); I16.0 Hypertensive urgency; F12.90 Cannabis use, unspecified, uncomplicated; I10 Essential (primary) hypertension; Z91.148 Patient's other noncompliance with medication regimen for other reason
CPT/HCPCS: 36415; 73564; 80048; 85025; 85652; 86140; 99283; 99284

== ENCOUNTER 2023-07-21 13:40 | Outpatient (AMB) | payer OTHER, SELFPAY ==
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
[2023-07-21 14:05] VITALS: BMI 25.0
== END 2023-07-21 15:07 | disposition home or self-care (01) ==
PROVIDERS: Visit Provider Physician Assistant
DX: M25.461 Effusion, right knee (principal); M23.91 Unspecified internal derangement of right knee
CPT/HCPCS: 20610; 99204

== ENCOUNTER → 2023-07-21 13:40 | Outpatient (BNVA) | payer OTHER, SELFPAY | PROVIDERS: Visit Provider Physician Assistant | DX: M25.461 Effusion, right knee (principal); M23.91 Unspecified internal derangement of right knee | CPT/HCPCS: 20610; 99202; J1040 ==

== ENCOUNTER 2023-07-30 10:15 | Outpatient (REF) | payer OTHER, SELFPAY ==
--- NOTE | ~2023-07-30 | MR_ITS ---
EXAMINATION: MR KNEE WITHOUT CONTRAST, RIGHT CLINICAL INFORMATION: Effusion, right knee. Pain. No injury. COMPARISON: Radiographs dated 07/17/2023 TECHNIQUE: MRI of the knee without contrast was performed using routine sequences on a high-field scanner. FINDINGS: MENISCI: Medial Meniscus: Intact Lateral Meniscus: A horizontal tear is present at the anterior horn extending to the inner margin. LIGAMENTS: Cruciate: Intact Collateral: Intact EXTENSOR MECHANISM: A fragmented enthesopathic spur is evident at the patellar tendon insertion on the tibial tuberosity. Quadriceps and patellar tendons are intact. ARTICULAR CARTILAGE/BONE: Patellofemoral Compartment: There is moderate to severe nonuniform articular cartilage loss at the patella with underlying cortical irregularity, subcortical edema signal, and subcortical cystic change. Small to moderate size marginal osteophytes. Moderate to high-grade nonuniform cartilage loss is present in the trochlea with central osteophytes and foci of subchondral edema signal. Medial Compartment: Small marginal osteophytes. Subcortical cystic changes are present of the anterior and posterior margins of the medial tibial plateau. Mild subchondral edema along the anterior margin of the medial tibial plateau. Articular cartilage appears relatively well-preserved Lateral Compartment: Small marginal osteophytes. Focal partial-thickness cartilage loss is present at the posterior weightbearing surface of the medial femoral condyle and, to a lesser extent, the posterior margin of the medial tibial plateau. JOINT FLUID AND BURSAE: Moderate-sized joint effusion. No Davila's cyst. MR/MR knee RT wo con IMPRESSION: 1. Horizontal tear at the anterior horn of the lateral meniscus. 2. Moderate to severe patellofemoral compartment osteoarthritis. More mild osteoarthritis in the medial and lateral compartments. 3. Moderate-sized joint effusion.
== END 2023-07-30 10:16 | disposition home or self-care (01) ==
LOC: HO.MRI 10:15
PROVIDERS: Visit Provider Physician Assistant
DX: M25.461 Effusion, right knee (principal); M23.91 Unspecified internal derangement of right knee
CPT/HCPCS: 73721

== ENCOUNTER 2023-08-14 14:33 | Outpatient (AMB) | payer OTHER, SELFPAY ==
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
== END 2023-08-14 14:52 | disposition home or self-care (01) ==
PROVIDERS: Visit Provider Orthopaedic Surgery
DX: M23.91 Unspecified internal derangement of right knee (principal); M17.11 Unilateral primary osteoarthritis, right knee; M25.461 Effusion, right knee
CPT/HCPCS: 99213

== ENCOUNTER → 2023-08-14 14:33 | Outpatient (BNVA) | payer OTHER, SELFPAY | PROVIDERS: Visit Provider Orthopaedic Surgery | DX: M17.11 Unilateral primary osteoarthritis, right knee (principal); M23.91 Unspecified internal derangement of right knee | CPT/HCPCS: 99212 ==